=== PATIENT | female | born 1960 | race Caucasian/White ===

== ENCOUNTER 2018-08-08 08:58 | Emergency (ER) | payer SELFPAY ==
[2018-08-08 09:29] LABS: HEMOGLOBIN 14.5 gm/dl (11.6-16.0); MEAN CELL VOLUME 85.1 fl (81-97); MEAN CORPUSCULAR HEMOGLOBIN 30.1 pg (27-33); MEAN CORPUSCULAR HGB CONC 35.4 g/dl (32-36); MEAN PLATELET VOLUME 9.5 fl (7.4-10.4); PLATELET COUNT 346 K/uL (130-400); RED BLOOD COUNT 4.82 M/uL (3.80-5.40); RED CELL DISTRIBUTION WIDTH 13.9 % (11.5-14.5); WHITE BLOOD COUNT W/O DIFF 14.8 K/uL (4.2-12.2)
--- NOTE | 2018-08-08 09:36 | Emergency Department Record ---
History of Present Illness - General Chief complaint: Cold Stated complaint: SINUS INFECTION Time Seen by Provider: 08/08/18 09:08 Source: Patient Mode of Arrival: Ambulatory Limitations: No limitations - History of Present Illness Initial comments: pt has bad kerns and facial pain. she also has nausea and congestion, a cough. she stopped taking bp meds because she has no insurance. MD complaint: Other Onset/Timin -: Days(s) Severity scale (1-10): 8 Quality: Aching Consistency: Constant Improves with: None Worsens with: None Associated Symptoms: Cough, Pain with swallowing, Rhinorrhea, Sore throat - Related Data Previous Rx's Medication Instructions Recorded Sulfamethoxazole/Trimethoprim 1 each PO BID #14 tablet 08/08/18 [Bactrim Ds Tablet] Allergies Allergy/AdvReac Type Severity Reaction Status Date / Time lisinopril Allergy DIFFICULTY Verified 08/08/18 09:05 BREATHING Travel Screening - Travel/Exposure Within Last 30 Days Have you traveled within the last 30 days?: No Review of Systems Reviewed: No additional complaints except as noted below Constitutional: Reports: As per HPI, Chills. Denies: Fever, Malaise, Night sweats, Weakness, Weight change Eyes: Reports: As per HPI. Denies: Eye discharge, Eye pain, Photophobia, Vision change ENT: Reports: As per HPI, Congestion, Throat pain. Denies: Dental pain, Ear pain, Epistaxis, Hearing loss Respiratory: Reports: As per HPI, Cough. Denies: Dyspnea, Hemoptysis, Stridor, Wheezes Cardiovascular: Reports: As per HPI. Denies: Arrhythmia, Chest pain, Dyspnea on exertion, Edema, Murmurs, Orthopnea, Palpitations, Paroxysmal nocturnal dyspnea, Rheumatic Fever, Syncope Endocrine: Reports: As per HPI. Denies: Fatigue, Heat or cold intolerance, Polydipsia, Polyuria Gastrointestinal: Reports: As per HPI. Denies: Abdominal pain, Constipation, Diarrhea, Hematemesis, Hematochezia, Melena, Nausea, Vomiting Genitourinary: Reports: As per HPI. Denies: Abnormal menses, Discharge, Dyspareunia, Dysuria, Frequency, Hematuria, Incontinence, Retention, Urgency Musculoskeletal: Reports: As per HPI. Denies: Arthralgia, Back pain, Gout, Joint swelling, Myalgia, Neck pain Skin: Reports: As per HPI. Denies: Bruising, Change in color, Change in hair/ nails, Lesions, Pruritus, Rash Neurological: Reports: As per HPI. Denies: Abnormal gait, Confusion, Headache, Numbness, Paresthesias, Seizure, Tingling, Tremors, Vertigo, Weakness Psychiatric: Reports: As per HPI. Denies: Anxiety, Auditory hallucinations, Depression, Homicidal thoughts, Suicidal thoughts, Visual hallucinations Hematological/Lymphatic: Reports: As per HPI. Denies: Anemia, Blood Clots, Easy bleeding, Easy bruising, Swollen glands Past Medical History - SOCIAL HISTORY Smoking Status: Current every day smoker Alcohol Use: None Drug Use: None - RESPIRATORY Hx Respiratory Disorders: No - CARDIOVASCULAR Hx Cardio Disorders: Yes Hx Hypertension: Yes - NEURO Hx Neuro Disorders: No - GI Hx GI Disorders: No - Hx Genitourinary Disorders: No - ENDOCRINE Hx Endocrine Disorders: No - MUSCULOSKELETAL Hx Musculoskeletal Disorders: No - PSYCH Hx Psych Problems: No - HEMATOLOGY/ONCOLOGY Hx Hematology/Oncology Disorders: No Family Medical History Any Significant Family History?: No Physical Exam - General General Appearance: Alert, Oriented x3, Cooperative, Mild distress - Head Head exam: Normal inspection - Eye Eye exam: Normal appearance, PERRL, EOMI Pupils: Normal accommodation - ENT ENT exam: Normal exam, Mucous membranes moist, Normal external ear exam, Normal orophraynx, TM's normal bilaterally Ear exam: Normal external inspection. negative: External canal tenderness Nasal Exam: Normal inspection. negative: Discharge, Sinus tenderness Mouth exam: Normal external inspection, Tongue normal Teeth exam: Normal inspection. negative: Dental caries Throat exam: Normal inspection. negative: Tonsillar erythema, Tonsillar exudate - Neck Neck exam: Normal inspection, Full ROM. negative: Tenderness - Respiratory Respiratory exam: Normal lung sounds bilaterally. negative: Respiratory distress - Cardiovascular Cardiovascular Exam: Normal rhythm, Normal heart sounds, Tachycardia - GI/Abdominal GI/Abdominal exam: Soft, Normal bowel sounds. negative: Tenderness - Rectal Rectal exam: Deferred - exam: Deferred - Extremities Extremities exam: Normal inspection, Full ROM, Normal capillary refill. negative: Tenderness - Back Back exam: Reports: Normal inspection, Full ROM. Denies: Muscle spasm, Rash noted, Tenderness - Neurological Neurological exam: Alert, CN II-XII intact, Normal gait, Oriented X3 - Psychiatric Psychiatric exam: Normal affect, Normal mood - Skin Skin exam: Dry, Intact, Normal color, Warm Course Vital Signs 08/08/18 09:00 Temperature 98.8 F Pulse Rate 104 H Respiratory 20 Rate Blood Pressure 186/125 Pulse Ox 97 Medical Decision Making - Lab Data Result diagrams: 08/08/18 09:00 08/08/18 09:00 Lab Results 08/08/18 Range/Units 09:00 WBC 14.8 H (4.2-12.2) K/uL RBC 4.82 (3.80-5.40) M/uL Hgb 14.5 (11.6-16.0) gm/dl Hct 41.0 (35.0-47.0) % MCV 85.1 (81-97) fl MCH 30.1 (27-33) pg MCHC 35.4 (32-36) g/dl RDW 13.9 (11.5-14.5) % Plt Count 346 (130-400) K/uL MPV 9.5 (7.4-10.4) fl Eosinophils % Not Reportable Basophils % Not Reportable Disposition Disposition: Discharge Clinical Impression: UTI (urinary tract infection) Qualifiers: Urinary tract infection type: acute cystitis Hematuria presence: without hematuria Qualified Code(s): N30.00 - Acute cystitis without hematuria Sinusitis Qualifiers: Sinusitis location: unspecified location Chronicity: acute Recurrence: non- recurrent Qualified Code(s): J01.90 - Acute sinusitis, unspecified Hypertension Qualifiers: Hypertension type: essential hypertension Qualified Code(s): I10 - Essential ( primary) hypertension Disposition: Home, Self-Care Condition: (1) Good Instructions: Urinary Tract Infection in Women (ED), Sinusitis (ED), Hypertension (ED) Additional Instructions: follow up with family doctor OCTAVIO. return sooner if worse Prescriptions: Sulfamethoxazole/Trimethoprim [Bactrim Ds Tablet] 1 each PO BID #14 tablet Quality - Quality Measures Quality Measures: N/A - Blood Pressure Screening Does Patient Have Any of the Following: No Blood Pressure Classification: Hypertensive Reading Systolic Measurement: 186 Diastolic Measurement: 125 Screening for High Blood Pressure: < First Hypertensive BP, F/U Documented > [ [id number]] First Hypertensive Follow-up Interventions: Follow-up with rescreen GT 1 day and LT 4 weeks.
[2018-08-08 09:38] LABS: BLOOD UREA NITROGEN 8 mg/dL (6-20); CREATININE 0.6 mg/dL (0.5-0.9); EST GLOMERULAR FILTRATION RATE > 60 mL/min
[2018-08-08 09:39] LABS: TOTAL PROTEIN 8.3 g/dL (6.6-8.7)
[2018-08-08 09:41] LABS: GLUCOSE,RANDOM 210 mg/dL (74-109)
[2018-08-08 09:44] LABS: ALBUMIN 4.2 g/dL (4.0-5.0); ALKALINE PHOSPHATASE 138 U/L (35-104); ALT/SGPT 15 U/L (<33); AST/SGOT 15 U/L (10.0-35.0)
[2018-08-08 09:49] LABS: URINE APPEARANCE SL CLOUDY; URINE BILIRUBIN NEGATIVE (NEGATIVE); URINE BLOOD NEGATIVE (NEGATIVE); URINE COLOR YELLOW; URINE GLUCOSE (UA) NEGATIVE (NEGATIVE); URINE KETONE NEGATIVE (NEGATIVE); URINE LEUKOCYTE ESTERASE LARGE (NEGATIVE); URINE NITRITE POSITIVE (NEGATIVE); URINE PROTEIN TRACE (NEGATIVE); URINE UROBILINOGEN 0.2 E.U./dL (0.20 - 1.00)
[2018-08-08] MEDS: 0.9 % SODIUM CHLORIDE 1,000 ML BAG IV ONE (09:50)
[2018-08-08 09:55] LABS: URINE BACTERIA 4+; URINE EPITHELIAL CELLS 0 - 2 (FEW); URINE RBC 0 - 2 (NONE SEEN); URINE WBC >50 (0-2/hpf)
[2018-08-08] MEDS: POTASSIUM CHLORIDE 20 MEQ TABLET PO ONE (10:34)
--- NOTE | 2018-08-10 17:04 | CT SCAN REPORT ---
EXAM: CT SCAN HEAD WO CONTRAST HISTORY: HEADACHE, FACIAL PRESSURE. TECHNIQUE: Noncontrast CT brain. COMPARISON: None. FINDINGS: No midline shift, mass effect, or abnormal intra- or extra-axial fluid collection. No cerebral edema, focal mass, or intracranial hemorrhage is detected. Ventricle sizes are within normal limits. Minimal bilateral maxillary sinus and ethmoid air cell submucosal thickening. Minimal debris within the left sphenoid sinus. IMPRESSION: 1. NO ACUTE INTRACRANIAL FINDINGS. 2. MINIMAL SINUS DISEASE INVOLVING THE LEFT SPHENOID AND BILATERAL MAXILLARY SINUSES. JOB NUMBER: [id number] [facility]
== END 2018-08-08 11:05 | disposition home or self-care (01) ==
LOC: ER 08:58
DX: J01.90 Acute sinusitis, unspecified (principal); N30.00 Acute cystitis without hematuria; R11.0 Nausea; R51 Headache; I10 Essential (primary) hypertension; R05 Cough; F17.210 Nicotine dependence, cigarettes, uncomplicated
CPT/HCPCS: 70450; 80053; 81001; 85027; 99284; J7030